=== PATIENT | female | born 1960 | race Caucasian/White ===

== ENCOUNTER 2020-02-16 16:06 | Outpatient (REF) | payer OTHER, SELFPAY | END 2020-02-16 16:07 | disposition home or self-care (01) | LOC: HO.LAB 16:06 | PROVIDERS: Visit Provider Internal Medicine | DX: Z20.828 Contact with and (suspected) exposure to other viral communicable diseases (principal) | CPT/HCPCS: C9803; U0003 ==

== ENCOUNTER 2024-09-25 07:15 | Outpatient (AMB) | payer MEDICARE, SELFPAY ==
--- OUTSIDE RECORDS SUMMARY | 2024-09-25 07:18 | XMS_ITS | Clinical Summary ---
Author Organization [facility] Address [address] [place] [address] Care Team Providers Care Vessel Builder Name Role Phone Pcp, No Primary Care Provider Unavailabl e Source Comments This information has been disclosed to you from records protected by Federal confidentiality rules (42 CFR part 2). The Federal rules prohibit you from making any further disclosure of this information unless further disclosure is expressly permitted by the written consent of the person to whom it pertains or as otherwise permitted by 42 CFR part 2. A general authorization for the release of medical or other information is NOT sufficient for this purpose. The Federal rules restrict any use of the information to criminally investigate or prosecute any alcohol or drug abuse patient.[facility] Allergies No known active allergies Medications progesterone (PROMETRIUM) 100mg Cap Take by mouth every evening Do not use if allergic to peanuts Active Social History Tobacco Use Types Packs/Day Years Used Date Smoking Tobacco: Former Cigarettes Tobacco Cessation:Counseling Given: Not Answered Core Social Determinants of Health Screening Que stions Answer Date Recorded Unable to Pay for Housing in the Last Year Not o n file 01/22/2023 Number of Places Lived in the Last Year Not on f ile 01/22/2023 Unstable Housing in the Last Year Not on file 01/22/2023 Comments No Sex and Gender Information Value Date Recorded Sex Assigned at Not on file Legal Sex Female 9:52 AM PST Gender Identity Not on file Sexual Orientation Not on file Last Filed Vital Signs Vital Sign Reading Time Taken Comments Blood Pressure 114/70 01/22/2023 10:10 AM PST Pulse 70 01/22/2023 10:10 AM PST Temperature 36.7 C (98 F) 01/22/2023 10:10 AM PST Respiratory Rate 16 01/22/2023 10:10 AM PST Oxygen Saturation 99% 01/22/2023 10:10 AM PST Inhaled Oxygen Concentration - - Weight - - Height - - Body Mass Index - - Plan of Treatment Health Maintenance Due Date Last Done Comments LIPID SCREENING 02/14/1968 HEPATITIS C SCREENING 02/14/1976 MMR VACCINE ADULT 1977 MAMMOGRAM 1998 COLORECTAL CANCER SCREENING DISCUSSION 2003 ZOSTER VACCINE (Shingrix w/wo Zostavax) (1 of 2) 02/14/2008 DTaP,Tdap,or Td Vaccine (1 - Tdap) 01/25/2018 01/24/2018 PNEUMOCOCCAL VACCINE 50+ YEARS (2 of 2 - PCV20 or PCV21) 12/28/2022 12/28/2021 ADVANCE DIRECTIVE DISCUSSION 2023 BONE DENSITOMETRY 2023 COVID-19 Vaccine ( season) 2023 11/15/2022, 07/28/2021, 01/29/2021 INFLUENZA VACCINE 11/18/2024 11/06/2022, , 12/23/2020, Additional history exists RSV VACCINE 60+ YEARS OR (1 - 1-dose 75+ series) 2033 HEPATITIS A VACCINE Aged Out No longe r eligible based on patient's age to complete this topic HPV VACCINE Aged Out No longer eligi ble based on patient's age to complete this topic MENINGOCOCCAL ACWY VACCINE Aged Out N o longer eligible based on patient's age to complete this topic Insurance MEDICARE [facility] SR AARP SUPPLEMENT Care Teams Vessel Builder Relationship Specialty Start Date End Date Pcp, No GENERIC PCP - General 01/22/23
--- OUTSIDE RECORDS SUMMARY | 2024-09-25 07:18 | XMS_ITS | Clinical Summary ---
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 07/04/19 21 Active ALBUTEROL IN Inhale by mouth. Active Other Meds (See Sig/Instructions ) Medication name: Iron Glycinate 29 mg QD, Hormone Protect QD, Iodine + QD, Methylcobalamin (5 mg B12) QD, K2 D3 10,000 QD, K2 - 45 QD, Progesterone 225 mg QNOC, testosterone/estrog en replacement tablets Stated by pt. Active budesonide-formo terol 80-4.5 MCG/ACT inhalerIndicatio ns:SOB (shortness of breath),Moderate persistent asthma with exacerbation (HCC) Inhale 2 puffs by mouth every 12 hours. Use with spacer chamber. 10.2 g 08/17/19 21 Active acetaminophen-co deine 120-12 MG/5ML solution Take 10 mL by mouth every 6 hours as needed for other (intractable coughing) for up to 20 doses. 200 mL 08/25/19 21 Active Active Problems Problem Noted Date Diagnosed Date Dyslipidemia 04/23/2019 Overview (08/16/2020): ASCVD risk score 1.9% on 04/23/19 Immunizations Immunization Administration Dates Next Due COVID-19 Pfizer mRNA monovalent 12 yrs and older 05/23/2020,05/02/2020 Family History Medical History Relation Comments Cancer Brother Diabetes Brother Heart Disease Brother Stroke Brother Cancer Father Heart Disease Father Kidney Disorder Father Heart Disease Mother Other Mother Osteoporosis Relation Status Comments Brother Father Mother Social History Tobacco Use Types Packs/Day Years Used Date Smoking Tobacco: Never Alcohol Use Standard Drinks/Week Comments Yes 0 (1 standard drink = 0.6 oz pur e alcohol) less than 1 wine per wk. Comments No Sex and Gender Information Value Date Recorded Sex Assigned at Female 09/21/2020 7:53 AM PDT Legal Sex Female 1:54 PM PST Gender Identity Female 09/21/2020 7:53 AM PDT Sexual Orientation Straight 09/21/2020 7: 53 AM PDT Last Filed Vital Signs Vital Sign Reading Time Taken Comments Blood Pressure 115/70 08/24/2020 12:40 AM PDT Pulse 87 08/24/2020 12:40 AM PDT Temperature 36.4 C (97.5 F) 08/23/2020 5:10 PM PDT Respiratory Rate 16 08/24/2020 12:40 AM PDT Oxygen Saturation 97% 08/24/2020 12:40 AM PDT Inhaled Oxygen Concentration - - Weight 50.9 kg (112 lb 3.2 oz) 08/23/2020 3:56 P M PDT Height 160 cm (5' 3 ) 08/17/2020 12:15 PM PDT Body Mass Index 19.88 08/17/2020 12:15 PM PDT Plan of Treatment Not on file Insurance [facility] [place] [address] Care Teams Order Picker/Assembler Relationship Specialty Start Date End Date Pcp, Outside Identifies patients who have a Non Medicine PCP PCP - General 01/20/21
--- OUTSIDE RECORDS SUMMARY | 2024-09-25 07:18 | XMS_ITS | Clinical Summary ---
Author Organization [facility] Address [address] [place] [address] Care Team Providers Care Innovation Manager Name Role Phone Unavailable Primary Care Provider Unavailabl e Source Comments PLEASE NOTE, if this patient is a minor, it may be UNLAWFUL to discuss sensitive information that is contained in these records (such as FAMILY PLANNING, MENTAL HEALTH or SUBSTANCE ABUSE) with the minor patient's parent or other person without the patient's specific authorization.[facility] Allergies Active Allergy Reactions Criticality Noted Date Comments Cortisone Rash 04/01/2019 Cortisone injections Medications calcium carbonate (CALCIUM 500 ORAL) Take by mouth Active cholecalciferol, vitamin D3, (VITAMIN D3 ORAL) Take by mouth Active docosahexaenoic acid/epa (FISH OIL ORAL) Take by mouth Active budesonide/formo terol fumarate (SYMBICORT INHL) Inhale into the lungs Active albuterol sulfate (VENTOLIN HFA INHL) Inhale into the lungs Active budesonide-formo teroL (SYMBICORT) 160-4.5 mcg/actuation inhaler Inhale 2 Puffs into the lungs 2 (two) times daily 1 Inhaler 04/01/2019 Active Hospital, Clinic, or Other Facility Administered Medication Ordered Dose Route Frequency Start Date End Date Status ProAir HFA 90 mcg/actuation inhaler (albuterol sulfate)Indications:M oderate asthma, unspecified whether complicated, unspecified whether persistent ([facility]) 2 Puff inhl Every 4 hours PRN 04/01/2019 Active Active Problems Problem Noted Date Diagnosed Date Dyslipidemia 04/23/2019 Overview (04/23/2019): ASCVD risk score 1.9% on 04/23/19 Social History Tobacco Use Types Packs/Day Years Used Date Smoking Tobacco: Never Smokeless Tobacco: Never Alcohol Use Standard Drinks/Week Comments Yes 0 (1 standard drink = 0.6 oz pur e alcohol) Social Connections Answer Date Recorded Social Connections and Isolation 0 04/01/2019 Financial Resource Strain Answer Date R ecorded Financial Resource Strain 0 2019 Stress Answer Date Recorded Stress 0 04/01/2019 Physical Activity Answer Date Recorded Physical Activity 0 04/01/2019 Food Insecurity Answer Date Recorded Food 0 04/01/2019 Transportation Needs Answer Date Record ed Transportation 0 04/01/2019 Housing Stability Answer Date Recorded Housing 0 04/01/2019 Safety and Environment Answer Date [place] r[place] Safety 0 04/01/2019 Utilities Answer Date Recorded Utilities 0 04/01/2019 Employment Answer Date Recorded Employment 0 04/01/2019 Comments Unknown Sex and Gender Information Value Date Recorded Sex Assigned at Not on file Legal Sex Female 12:43 PM PST Gender Identity Female 04/22/2019 10:54 AM PST Sexual Orientation Don't know 04/22/2019 10 :54 AM PST Last Filed Vital Signs Vital Sign Reading Time Taken Comments Blood Pressure 104/61 04/01/2019 7:13 PM PST Pulse 62 04/01/2019 7:13 PM PST Temperature 36.9 C (98.4 F) 04/01/2019 7:13 PM PST Respiratory Rate - - Oxygen Saturation 98% 04/01/2019 7:13 PM PST Inhaled Oxygen Concentration - - Weight 53.8 kg (118 lb 8 oz) 04/01/2019 7:13 PM PST Height 160 cm (5' 3 ) 04/01/2019 7:13 PM PST Body Mass Index 20.99 04/01/2019 7:13 PM PST Plan of Treatment Not on file Insurance [facility] [place]ID [place]
--- NOTE | 2024-09-25 07:33 | AM.OFFWIN_ITS ---
Intake Vital Signs 09/25/24 07:36 Height 5 ft 2.5 in Weight 114 lb 8 oz BMI 20.6 BP 100/60 Blood Pressure Location Rt brachial Position Sitting Pulse 66 Pulse Source Pulse Oximeter Temp 97.8 F Temp Source Oral Pulse Oximetry (%) 96 Oxygen Delivery Method Room Air Intake Visit Reasons: EP-vaginal bleeding Patient Tobacco Use Status: Never used Tobacco Furniture Technician Required: No Is last menstrual period known: No Post menopausal: Yes Patient : No Allergies No Known Allergies Allergy (Verified 09/25/24 07:40) Do you need a note to return to daycare/school/sports/work: No HPI HPI Comments History of Present Illness Details This is a 64-year-old female who experienced menopause at 48 years of age presenting for evaluation of postmenopausal bleeding. Patient states that she has had both estradiol and testosterone seeds implanted for management of her osteoporosis and she is to also take progesterone daily. Patient traveled recently from [place] and was without her progesterone for approximately 2 weeks. Patient has since had her progesterone refilled however comes today because she has had very mild vaginal bleeding, which she describes as spotting, for the past 2 days. Patient's previous abdominal surgeries include section and tubal ligation only. Patient reports mild cramping for which she has needed no [id number] medications. [facility] Social History Patient Tobacco Use Status: Never used Tobacco Review of Systems Const All systems reviewed & are unremarkable except as noted in HPI and below Reports no additional complaints, Denies body aches, Denies chills, Denies fatigue and Denies fever(s) Eyes Reports no additional complaints Card Reports no additional complaints, Denies chest pain and Denies dyspnea Resp Denies cough and Denies dyspnea GI Reports no additional complaints and Reports abdominal pain ( cramping ) Denies no additional complaints, Reports abnormal vaginal bleeding, Denies difficulty voiding, Denies hot flashes, Denies dysuria, Denies vaginal odor and Denies vaginal pruritus Musc Reports no additional complaints Skin/Breast Reports system reviewed and no additional complaints, except as documented Neuro Reports no additional complaints Psych Reports no additional complaints Endo Reports no additional complaints and Denies fatigue Aller/Immun Reports no additional complaints Physical Exam Vital Signs: Last Vital Signs Temp 97.8 F 09/25/24 07:36 Pulse 66 09/25/24 07:36 BP 100/60 09/25/24 07:36 Pulse Ox 96 09/25/24 07:36 Oxygen Delivery Method Room Air 09/25/24 07:36 BMI result Body Mass Index 20.6 Const General: cooperative, healthy appearing, comfortable, no acute distress, well developed, alert, awake and Physically active Nutritional Appearance: well nourished Orientation/consciousness: patient oriented x3 Limitations: no limitations Cardio Rate: regular rate and not tachycardic Rhythm: regular rhythm GI Palpation (GI): Soft to palpation and nontender Other: Pelvic examination is deferred. Skin General skin exam: no rashes or lesions noted Neuro General: patient oriented x3 Psych Appearance: grossly normal Mental Status: mental status grossly normal Insight: Good insight present (Psych) Judgement: Good judgement present (Psych) Assessment & Plan Assessment & Plan (1) Postmenopausal bleeding: Comment: Patient presents with postmenopausal bleeding and is hemodynamically stable. Patient's primary care physician is in [place]. Her postmenopausal bleeding is likely related to her lack of progesterone use however a malignancy can not be excluded an ultrasound examination is warranted at this time. Code(s): N95.0 - Postmenopausal bleeding Plan: Pelvic ultrasound examination is ordered. 1340. Normal pelvic US result called directly to the patient. Orders: Orders US pelvic and transvaginal Today N95.0 - Postmenopausal bleeding Coding Level of Care Code New Pt Level 4 (28429) Diagnoses Postmenopausal bleeding N95.0 Time Spent (min) 20
[2024-09-25 07:36] VITALS: BP 100/60; PULSE 66; TEMP 36.6; O2SAT 96; BMI 20.6
== END 2024-09-25 08:24 | disposition home or self-care (01) ==
PROVIDERS: PCP Internal Medicine; Visit Provider Physician Assistant
DX: N95.0 Postmenopausal bleeding (principal)

== ENCOUNTER 2024-09-25 12:18 | Outpatient (REF) | payer MEDICARE, SELFPAY ==
--- NOTE | ~2024-09-25 | US_ITS ---
EXAMINATION: US PELVIS TRANSABDOMINAL AND TRANSVAGINAL HISTORY: N95.0 - Postmenopausal bleeding COMPARISON: There are no prior studies available for comparison. TECHNIQUE: Transabdominal and endovaginal real-time 2D jauregui-scale ultrasound was performed. FINDINGS: Uterus: The uterus is normal in size, measuring 7.8 x 3.7 x 4.8 cm. Myometrium has a normal echotexture. No fibroids are identified. Endometrium: The endometrial stripe measures 5 mm in thickness. Right ovary: The right ovary is not identified. Left ovary: The left ovary is not identified. Pelvic fluid: none. US/US pelvic and transvaginal IMPRESSION: The endometrial stripe is not thickened. The ovaries are not identified. Electronically signed by: Chau Barrientos MD 09/25/2024 01:26 PM EDT
== END 2024-09-25 12:19 | disposition home or self-care (01) ==
LOC: HO.US 12:18
PROVIDERS: Visit Provider Physician Assistant
DX: N95.0 Postmenopausal bleeding (principal); M81.0 Age-related osteoporosis without current pathological fracture
CPT/HCPCS: 76830; 76856; 99202

== ENCOUNTER → 2024-09-25 12:25 | Outpatient (BNV) | payer MEDICARE, SELFPAY | PROVIDERS: Visit Provider Radiology Diagnostic Radiology | DX: N95.0 Postmenopausal bleeding (principal) | CPT/HCPCS: 76830; 76856 ==